=== PATIENT | male | born 1980 | race Two or more races ===

== ENCOUNTER 2022-04-02 21:00 | Emergency (ER) | payer BC ==
[~2022-04-02] VITALS: Ht 177.8 cm; Wt 68.0 kg
[~2022-04-02 21:00] MED LIST: CEPH500 PO; CYCL10 PO; DOXY100 PO; HYDACE5 PO; NABU500; OXYACE5T PO; PENVK250 PO; PENVK500 PO; RXHYDACE PO; RXTRAM50 PO; TRAM50 PO
== END 2022-04-02 22:10 | disposition home or self-care (01) ==
LOC: ER 21:00
DX: S61.411A Laceration without foreign body of right hand, initial encounter (principal); W26.8XXA Contact with other sharp object(s), not elsewhere classified, initial encounter; F17.200 Nicotine dependence, unspecified, uncomplicated; Z23 Encounter for immunization
CPT/HCPCS: 90471; 90714; 99282-25